=== PATIENT | male | born 1955 | race Caucasian/White ===

== ENCOUNTER 2022-02-19 09:48 | Outpatient (CLI) | payer MEDICARE, SELFPAY ==
--- NOTE | 2022-02-19 10:37 | PCM.PR.HP ---
History of Present Illness Arrival date:: 02/19/22 Arrival time:: 10:00 Date of Referral:: 02/02/22 Date of Evaluation: 02/19/22 Referring Physician: JAKE Primary Diagnosis: COPD mMRC Breathless Scale: When is the patient short of breath? Y/N Grade: Description of Breathlessness: 0 I only get breathless with strenuous exercise. 1 I get short of breath when hurrying on level ground or walking up a slight hill. 2 On level ground, I walk slower than people of the same age because of breathless, or have to stop for breath when walking at my own pace. 3 I stop for breath after walking 100 yards or after a few minutes on level ground. 4 I am too breathless to leave the house or I am breathless when dressing. Respiratory Problems: Yes: Limited Range of Motion, Fatigue, Able to Speak in Full Sentences, Ankle Swelling, Anxiety, Dyspnea with Activity No: Retain Secretions, Dyspnea at Rest, Dyspnea Lying Down Flat, Cough with Secretions - Secretions Thick:: No Thin:: No Hx of Sleep Apnea: Yes Do you snore loudly (louder than talking or can be heard through closed doors)?: Yes - CPAP @ [facility] History of Hypertension (for STOP score): Yes Home Medications: Home Medications albuterol mcg INHALATION 02/19/22 fluticasone propionate [Flonase] 1 spray INTRANASAL DAILY 02/19/22 guaifenesin [Mucinex] 600 mg PO BID 02/19/22 metformin 500 mg PO BID 02/19/22 montelukast 10 mg PO QHS 02/19/22 montelukast [Singulair] 10 mg PO DAILY 02/19/22 oxygen-air delivery systems [[employer] Nasal Cpap System] 02/19/22 Allergies/Adverse Reactions: Allergies No Known Allergies Allergy (Verified 02/19/22 10:44) Medical Utilization Do you use a peak flow meter at home?: No Do you use a spacer device with your inhalers?: No Number of hospital visits in the last year?: 0 Number of emergency room visits in the last year?: 0 Do you see your physician on a regular schedule?: Yes How often?: 6 MONTHS Comments:: [facility] - PCP. [facility] - PULMONARY Advanced Directives - Advanced Directives Power of Visualizer: No Living Will: No Advance Directives Information Provided: Yes Advance Directives on File: No DNR Order?:: No - MOLST See MOLST form: No Past Medical History - Covid-19 Screening Fever: No Unexplained muscle aches: No Current respiratory symptoms: No Upper respiratory infections symptoms: No Gastro-intestinal symptoms: No Cfh-Lzdw-Fljrdn symptoms: No Has tested positive for COVID-19 in last 30 days: No Had contact w/person w/symptoms or Covid-19 (+) last 14 days: No Has High Risk Exposures ID'd by Health dept/Inf Control team: No Lives in Assisted Living facility:: No Has a chronic lung disease or moderate to severe asthma:: Yes Has a serious heart condition:: No Immunocompromised:: No Severely obese (Body Mass Index of 40 or higher):: Yes Diabetic:: Yes Has chronic kidney disease undergoing dialysis:: No Has liver disease:: No Medical History: Past Medical History (Last Updated 02/19/22 @ 10:49 by Guanakito Walker, FACILITIES PROJECT MANAGER, CARDIAC NURSE PRACTITIONER, BS) Allergic rhinitis J30.9 Chronic acquired lymphedema I89.0 Chronic dyspnea R06.09 COPD (chronic obstructive pulmonary disease) J44.9 Diastolic heart failure I50.30 DM type 2 (diabetes mellitus, type 2) E11.9 Former cigarette smoker Z87.891 Hyperlipidemia E78.5 Lung nodule R91.1 Morbid obesity with BMI of 40.0-44.9, adult E66.01, Z68.41 MAREN on CPAP G47.33, Z99.89 Pleural thickening J92.9 - Current/ Previous Services Pulmonary Rehab:: No Social History - Smoking History Smoking Status: Former smoker Hx Tobacco Use: No Hx Smoking Exposure: No - Alcohol Use Alcohol Usage: Yes - BEER OCCASIONALLY - Substance Abuse Hx Substance Use: No - Occupation Occupation (List type of work in comments):: Retired - Hobbies, Recreation, Social Activities Hobbies: Other - OLD [employer]ARS Recreational Activities: I am able to engage in most, but not all activities Functioning ADL/IADL - Current Ability Current Ability: Independent Self-Care (e.g.,grooming, dressing, & bathing), Independent Ambulation, Independent Transfer, Independent Household tasks (e.g., light meal prep, laundry, shopping) - Pt Functioning Prior to Problem Prior Functioning: Self-Care (e.g.,grooming, dressing, & bathing): Independent, Ambulation: Independent, Transfer: Independent, Household tasks (e.g., light meal prep, laundry, shopping): Independent Social Environment - Status Marital Status: - Current Living Arrangements Living Environment:: Spouse - Children How many children do you have?: 3 Do any of your children live nearby?: Yes - Safety Do you feel safe in your surroundings?: Yes - Assistance Do you need any assistance at home?: NO Review of Systems Review of Systems: Right click = Denies ([place]). Left click = Reports ([place]) Respiratory: Reports: Pleuritic Pain, SOB upon Exertion, Wheezing, Appetite, Normal, Dizziness/Lightheadedness, Fatigue - ONLY OCCASIONALLY, Sleep, Normal. Denies: Sputum production, Sexual changes Is Patient Pain Free?: No Pain Location: none, other - FEET FROM NEUROPATHY Pain Level: 12/18 Risk Factor Assessment - Vital Signs Temperature: 97.5 F Pulse Rate: 87 Pulse Rhythm: Regular Respiratory Rate: 16 Pulse Ox: 98 Blood Pressure: 129/63 - Diabetes Diabetic History: Type II Nutrition Referral for Diabetes: Yes - Obesity Height: 5 ft 7 in Weight:: 247 lb Weight in Pounds: 247.0 lbs Weight Source: Estimated by Patient Body Mass Index (BMI): 38.7 Nutritional Referral for Obesity: Yes - Physical Activity Physical Inactivity: Recreational activity - WALKING Q/MORNING - Risk Stratification Risk Guidelines: Lowest Risk: Risk Factor for Smoking, Risk Factor for Dyslipidemia, Risk Factor for Diabetes, Risk Factor for Hypertension, Risk Factor for Sedentary Lifestyle, Risk Factor for Depression, Moderate Risk: Risk Factor for Diabetes, Highest Risk: Risk Factor for Obesity Motivation - Motivation to Participate On a scale of 1 to 10, how prepared are you to commit to attending program?: 9 What do you see as barriers to successfully being able to complete the program?: NONE What do you see as the benefits of succesfully completing the program? In other words, what do you hope to get out of participating in the program?: FEELING BETTER BREATHING BETTER Are there issues you are dealing with that will interfere with completing the program?: NONE Do you have a spouse or signficant other, family or friends who will help support you to complete the program?: YES
[2022-02-19 10:54] VITALS: BP 129/63; PULSE 87; RESP 16; TEMP 36.4; O2SAT 98; BMI 38.7
--- NOTE | 2022-02-19 11:31 | PCM.PR.TP ---
General Information2 - General Information Admitting Diagnosis: COPD Gold Classification:: GOLD 3: Severe - Personal Learning Style/Barriers Personal Learning Style:: Audio/Visual, Written Barriers to Learning: Vision impaired, Cognitive/learning impairment Educational Classes RI: Living with Chronic Lung Disease: Initial Assessment, Breathing Retraining: Initial Assessment, Exercise: Initial Assessment, Energy Conservation: Initial Assessment, Oxygen therapy: Initial Assessment - Education/Goals RI Patient Goals: Increase muscle strength: Initial Assessment, Improve energy level: Initial Assessment, Improve knowledge of lung disease: Initial Assessment, Improve diet and nutrition: Initial Assessment, Improve my quality of life: Initial Assessment Exercise - Initial Assessment - Visit Date of Eval: 02/19/22 Session Number:: 0 - PRE-CARDIAC REHAB EVAL - Problem/Goals Problems: Deconditioning, No regular exercise Goals:: RI: 2-3/wk for 18 weeks [36 sessions] - Physician Prescribed Exercise Modalities: Treadmill, NuStep, SciFit Frequency (days/week): 3 Duration (Minutes):: 30-45 Intensity: 60-80% of age predicted maximum heart rate reserve Current METSs:: 3.0 Target HR:: 123 - 94-123 Resting Blood Pressure: 134/75 EKG Type: SINUS RHYTHM WITH PREMATURE VENTRICULAR CONTRACTIONS - Plan Plan and Plan to Review:: Benefits of exercise, Core components of exercise, How to measure dyspnea level, How to monitor dyspnea level, Exercise intensity, Exercise safety guideline, Home exercise guidelines, Julio: 3-4/11-13 Home Exercise Mode: Walking Nutrition/Wt Mgmt - Initial - Visit Date of Eval: 02/19/22 Session Number:: 0 - PRE-CARDIAC REHAB EVALUATION - Problems/Goals Problems: Overweight Goals: Wt Loss 1-2 lbs per week - Weight Management Knowledge Deficit Management of:: Overweight Admit Height:: 5 ft 7 in Admit Weight:: 249 lb Admit BMI:: 38.9 - Intervention Referral to dietitian:: Yes Will attend diet classes:: Yes Intervention/Plan: Instruct on ideal BMI & set weight loss goal w/patient, Assist pt to ID & incorporate diet changes for weight loss by S9, Refer to Structured Weight Loss program as appropriate, Encourage goal of using 250-300dcal per session for weight loss - Plan Nutrition Plan: Yes Review BMI or WC & identify target wt & strategies for wt control, Yes Nutrition education class:, Yes Weight control education class:, Yes Education re: Need for ongoing weight monitoring Psychosocial - Initial Assess - Visit Date of Eval: 02/19/22 Session Number:: 0 - PRE-PULM REHAB EVAL - Problems/Goals History of Emotional Disorders: Anxious Psychosocial Goals: 1. Patient is free from overwhelming symtoms of depression (or anxiety, 2. Identifies personal stressors & states the strategies for managing, 3. Identifies activities to decrease isolation and/or symptoms of, 4. Improved psychosocial coping skills., 5. Verbalizes coping strategies., 6. Adequate treatment of depression., 7. Improved Q.O.L. - Psychosocial Test Tool Used:: Pulmonary QOL, PHQ-9 Questionnaire Referred to MD for counseling:: No - Referral to Behavioral Health PS - Interventions: Yes Attend Stress Management Classes, No Referral to Behavioral Health if PHQ-9 score >9:, No Referral to [facility], No Referral to Physician if PHQ-9 if score is 5-9: - Intervention/Plan: See List Interventions/Plan:: Assess stressors,coping strategies & signs of derpression on admission, Instruct/assist pt to develop coping & personal stress Mgt strategies, Instruct patient to recognize signs & symptoms of depression, Instruct patient to recog Oxygen & Oxygen Titration Init - Visit Date of Eval: 02/19/22 Session Number:: 0 - PRE-PULM REHAB EVALUATION - Initial Assessment Oxygen on Admission: None Patient Reports:: Prod cough daily <1 Tbsp - Goal Oxygen & Oxygen Tritration Goals: Effective hypoxemia control - Plans Plan: Train appropriate O2 use with exercise, Train O2 safety & systems Reviewed prescribed medications:: Purpose, Schedule, Side effects, Importance of compliance Instruct correct technique/timing & care:: MDI, DPI, Nebulizer, Return demo use of inhaler Bronchial Hygiene Plan: Controlled cough, Vibratory PEP device, Hydration, Evaluate sputum, When to call MD Core Components - Initial - Visit Date of Eval: 02/19/22 Session Number:: 0 - PRE-PULM REHAB EVAL - Hypertension Hypertension Diagnosis:: Hypertension ICD-10 I10 BP: 129/63 [place] [employer] Hypertension Guidelines: [place] [employer] Hypertension Guidelines. Normal BP Less than 120/80. Elevated BP 120/80. Hypertension Stage 1: BP 130-139/80-89. Hypertesnion Stage 2: BP 140 or higher/90 or higher. Hypertension Crisis: BP higher than 180/120 Low Sodium diet: Yes Outcomes/Goals: Able to verbalize/achieve optimal blood pressure <130/80, Incorporates diet changes & exercise for blood pressure control by DC - Tobacco - Initial Assessment Tobacco Program Goals: Complete smoking cessation. Attend education classes. Improve Knowledge Test score Stages of Change:: Pre-contemplation Learning Barriers: Vision, Cognitive Do you have family support?: Yes Tobacco Use: Non-smoker - Exacerbation Mgmt & Airway Clearance Problems:: Hypoxemia Hypoxemia Goals:: Using O2 as Rx's safely Bronchial Hygiene Problems:: Respiratory infection Prevention/Management Goals: Pt demonstrates effective cough, effective secretion clearance., Pt describes signs and symptoms of infection. Patient Reports:: Prod cough daily <1 Tbsp, 0-1/yr respiratory infection Plan: Monitor SpO2 rest & with exercise, Train appropriate O2 use with exercise, Train O2 safety & systems Instruct correct technique/timing & care:: MDI Bronchial Hygiene Plan: Controlled cough, Vibratory PEP device, Hydration, Evaluate sputum, When to call MD, Signs/symptoms to report: - Medication Interventions/plans: Instruct on medication effects & side effects, Instruct importance of taking meds as ordered & assist problem solving Medication Goals: Adherence to prescribed medications Does pt report taking home meds as prescribed?: Yes Medications: Yes MDI - Diabetes Diabetes:: Yes Insulin: Yes Referral to dietitian:: Yes Referral to Diabetic Clinic:: Yes Will attend diet classes:: Yes Core Components - 30 DAYS Core Components - 60 DAYS Core Components - 90 DAYS Core Components - Final Patient Health Questionnaire Initial Assessment 1. Little interest or pleasure in doing things: More than half the days 2. Feeling down, depressed, or hopeless: Several days 3. Trouble falling or staying asleep, or sleeping too much: Not at all 4. Feeling tired or having little energy: More than half the days 5. Poor appetite or overeating: Nearly every day 6. Feeling bad about yourself -- or that you are a failure or have let yourself or your family down: More than half the days 7. Trouble concentrating on things, such as reading the newspaper or watching television: Not at all 8. Moving or speaking so slowly that other people could have noticed. Or the opposite - being so fidgety or restless that you have been moving around a lot more than usual: Not at all 9. Thoughts that you would be better off , or of hurting yourself in some way: Not at all How difficult have these problems made it for you to do your work, take care of things at home, or get along with other people?: Somewhat difficult Total Score: 10 Knowledge Questionaire (BCKQ) - Information Information: [facility] COPD Knowledge Questionnaire (BCKQ) This questionnaire is designed to find out what you know about your lung problem. It should be completed without help form anyone else. This usually takes between 10 and 20 minutes. Your answers will help us to find out what information you need to help you to understand and manage your lung condition. Tucker the pauma which you think is the correct answer. - Questions a. In COPD the word chronic means it is severe: True b. COPD can only be confirmed by breathing tests: True c. In COPD ther is usually gradual worsening over time: True d. In COPD oxygen levels in the blood are always low: Don't know e. COPD is usually in people less than 40 years old: Don't know Terry than 80% of COPD cases are caused by cigarette smoking: Don't know b. COPD can be caused by occupational dust exposure: Don't know c. Longstanding asthma can develop into COPD: True d. COPD is commonly an inherited disease: False e. Women are less vunerable to the effects of cigarette than men: False a. Swelling of the ankles is common in COPD:: Don't know b. Fatigue [tiredness] is common in COPD: True c. Wheezing is common in COPD: True d. Crushing chest pain is common in COPD: Don't know e. Rapid weight loss is common in COPD: False a. Severe breathlessness prevents travel by air: Don't know b. Breathlessness can be worsened by eating large meals: True c. Breathlessness means that your oxygen levels are low: Don't know d. Breathlessness is a normal response to exercise: Don't know e. Breathlessness is primarily caused by a narrowing of the bronchial tubes: True a. Coughing phlegm is a common symptom in COPD: Don't know b. Clearing phlegm is more difficult if you get dehydrated: Don't know c. Bronchodilator inhalers can help clear phlegm: Don't know d. Phlegm causes harm if swallowed: Don't know e. Clearing phlegm can be assisted by breathing exercises: Don't know a. Chest infections often cause coughing of blood: Don't know b. Chest infection phlegm usually becomes coloured (ylw/grn): Don't know cExerbations (episodes of worsening) can occur in the absence of chest infection: Don't know d. Chest infections are always accompanied by a high temperature: Don't know e. Steroid tablets should be taken whenever there is an exacerbation: Don't know aWalking excercises better than breathing to improve fitness: Don't know b. Exercise should be avoided as it strains the lungs: Don't know c. Exercise can help maintain your bone density: Don't know d. Exercise helps relieve depression: Don't know e. Exercise should be stopped if it makes you breathless: Don't know a. Stopping smoking will reduce the risk of heart disease: Don't know b. Stopping smoking will slow down further lung damage: Don't know c. Stopping smoking is pointless as the damage is done: Don't know d.Stopping smoking usually results in improved lung function: Don't know eNicotine replacement therapy only available on prescription: Don't know a. A flu jab is recommended every year: Don't know b. You can get flu from having a flu jab: Don't know c. You can only have a flu jab if you are 65 or over: Don't know d. A pneumonia jab protects against all forms of pneumonia: Don't know e.You can have a pneumonia jab and a flu job on the same day: Don't know a. Bronchodilators act quickly (within 10 minutes): Don't know b. Both short & long acting bronchodilators can be taken on the same day: True c. Spacers (volumatic,nebuhaler,serochamber)should be dried w/atowel after washing: Don't know d. A spacer device increases the medication to the lungs: Don't know e. Tremor may be a side effect of bronchodilators: Don't know a. To be effective, the course should last at least 10 days: Don't know b. Excessive use of antibiotics can cause resistant bacteria (germs): Don't know c. Antibiotics will clear all chest infections: Don't know d. Antibiotic treatment is necessary for an exacerbation (worsening) however mild: Don't know e. Seek advice if antibiotics cause severe diarrhoea: True a. Steroid tablets help strengthen muscles: Don't know b. Steroid tablets should be avoided if there is a chest infection: Don't know c. The risk of long-term side effects due to steroids is less w/short courses then w/continous treatment: Don't know dIndigestion is common side effect from using steroid tablet: Don't know e. Steroid tablets can increase your appetite: Don't know a. Inhaled steroids should be stopped if you are given steroid tablets: Don't know bSteroid inhalers can be used for rapid relief breathlessnes: True c. Spacer devices reduce the risk of getting thrush in the mouth: Don't know d.Steroid inhaler should be taken before your bronchodilator: Don't know e. Inhaled steroids improve lung function in COPD: Don't know COPD Knowledge Test Total Score:: 12 COPD Assessment Test [CAT] - Questions Never cough = 0, Cough all the time = 5: 3 No phlegm = 0, Chest full of phlegm = 5: 2 No chest tightness = 0, Chest very tight = 5: 1 No breathless w/exertion = 0, Very breathless w/exertion = 5: 2 No limitations w/activity = 0, Very limited w/activity = 5: 3 Confident leaving home = 0, Not at all confident = 5: 1 Sleep soundly = 0, Don't sleep soundly = 5: 1 Lots of energy = 0, No energy at all = 5: 3 Total CAT score:: 16 Self-Efficacy Initial Assessment We would like to know how confident you are in doing certain activities. Please select your confidence level for:: Select your confidence level for the following using the scale 1-10 where 1 is not at all confident and 10 is totally confident. Your score is the average of all 6 responses. Fatigue: How confident are you that you can keep the fatigue caused by your disease from interfering with the things you want to do? Select Number: 4 Physical Discomfort or Pain: How confident are you that you can keep the physical discomfort or pain of your disease from interfering with the things you want to do? Select Number: 9 Emotional Distress: How confident are you that you can keep the emotional distress caused by your disease from interfering with the things you want to do? Select Number: 4 Other Symptoms or Health Problems: How confident are you that you can keep other symptoms or health problems from interfering with the things you want to do? Select Number: 6 Different Tasks and Activities: How confident are you that you can do the different tasks and activities needed to manage your health condition so as to reduce your need to see a doctor? Select Number: 5 Medication: How confident are you that you can do things other than just taking medication to reduce how much your illness affects your everyday life? Select Number: 4 Total Score:: 5 Nutrition Survey - Nutrition Survey Initial Have you lost >10 lbs over the past 2 months without trying?: No Are you following a special diet at home for diabetes, low fat, or low salt?: No Are you interested in meeting with a dietitian for help understanding your diet?: Yes Do you eat less than 3 meals a day?: No Do you eat fatty meats (gregorio, sausage, ribs, etc), fried foods, desserts, large amounts of salad dressings, margarine, butter, or cheese most days?: Yes Do you have food allergies? [Enter types in comment field]: No Do you eat in restaurants more than 3 times a week?: No Do you used canned, boxed, frozen meals, or soups, seasoning packets?: Yes
[2022-02-19 12:24] VITALS: BP 129/63; BP 134/75; BMI 38.9
== END 2022-02-19 23:59 | disposition home or self-care (01) ==
DX: J44.9 Chronic obstructive pulmonary disease, unspecified (principal)

== ENCOUNTER 2022-03-06 10:30 | Outpatient (RCR) | payer OTHER, SELFPAY | END 2022-03-07 23:59 | LOC: PR 10:30 | DX: R06.00 Dyspnea, unspecified (principal) | CPT/HCPCS: 97150; 94626 ==

== ENCOUNTER 2022-04-03 10:30 | Outpatient (RCR) | payer OTHER, SELFPAY ==
--- NOTE | 2022-03-20 08:01 | PCM.PR.TP ---
Exercise - 30-Day Assessment - Visit Date of Eval: 03/20/22 Session Number:: 11 - Physician Prescribed Exercise Modalities: Treadmill, Biodyne - Schwinn Airdyne Cycle, NuStep Intensity: 60-80% of age predicted maximum heart rate reserve Aerobic Exercise [30-60 min 3-7x/week]:: Progressing Julio-13 Current METSs:: 3.5 Target HR:: 130 - 100-130 THRR Current RPD:: 3 Maximum Exercise HR:: 111 Resting Blood Pressure: 120/65 Maximum Exercise Blood Pressure: 142/66 Minimum SpO2 with exercise: 93 - room air EKG Type: NST to sinus tach w/rare PVC/PAC Current Minutes of Exercise: 53 - Home Exercise Home Exercise:: Yes Mode: Walking Frequency:: daily Nutrition/Wt Mgmt - 30-Day - Visit Date of Eval: 03/20/22 Session Number:: 11 - Weight Management Weight Assessment:: BMI 21 to 25, Wt loss 1-2 lbs per week Height: 5 ft 7 in Weight:: 239 lb - Down from 242.5! BMI: 37.4 Weight Goals Progress:: Progressing Psychosocial - 30-Day - Visit Date of Eval: 03/20/22 Session Number:: 11 - Problems/Goals History of Emotional Disorders: None Psychosocial Goals: 7. Improved Q.O.L. - Psychosocial Test Tool Used:: PHQ-9 Questionnaire - Referral to Behavioral Health PS - Interventions: Yes Attend Stress Management Classes, No Referral to Behavioral Health if PHQ-9 score >9:, No Referral to [facility], No Referral to Physician if PHQ-9 if score is 5-9: - Plan Interventions/Plan:: Assess stressors,coping strategies & signs of derpression on admission, Instruct/assist pt to develop coping & personal stress Mgt strategies, Instruct patient to recognize signs & symptoms of depression Oxygen & Oxygen Titration 30D - Visit Date of Eval: 03/20/22 Session Number:: 11 - Reassessment Reassessment- 30 Days: Demonstrate knowledge of O2 Rx at rest & w/exercise Breath Sounds:: Inspiratory Wheezes - very mild SpO2:: 94 - room air arrival to IN Core Components - Initial Core Components - 30 DAYS - Visit Date of Eval: 03/20/22 Session Number:: 11 - Hypertension Hypertension Diagnosis:: Hypertension ICD-10 I10 Resting Blood Pressure:: 120/65 - Resting BPs have improved with exercise! [employer] Hypertension Guidelines: [place] [employer] Hypertension Guidelines. Normal BP Less than 120/80. Elevated BP 120/80. Hypertension Stage 1: BP 130-139/80-89. Hypertesnion Stage 2: BP 140 or higher/90 or higher. Hypertension Crisis: BP higher than 180/120 Peak Exercise Blood Pressure:: 142/66 Change in medication: No Outcomes/Goals: Able to verbalize/achieve optimal blood pressure <130/80, Incorporates diet changes & exercise for blood pressure control by DC Interventions/plan: Instruct on optimal blood pressure, hypertension & medications, Instruct on effects of sodium, alcohol, stress, exercise &hypertension 30 day Reassessments:: Progressing - Exacerbation Mgmt & Airway Clearance Reassessment: Demonstrates knowledge of O2 Rx at rest, Demonstrates knowledge of O2 Rx with exercise Bronchial Hygiene Plan: Yes Pt demo correct for improved hydration, Yes Pt demo correct for hand hygiene, Yes Pt demo correct for verbalize when to call MD - Medication Medication list reviewed:: Yes Taking medications 100% of the time:: Met - Diabetes Diabetes:: Yes Insulin dependent injection/pump?: Yes Non-Insulin Dependent?: Yes Do you monitor your blood sugar at home?: Yes Referral to Diabetic Clinic:: Yes Refer to Nutritional Services: DSMNT & MNT 30-day Reassessments:: Progressing - Heart Failure Documenting weight lula: No Core Components - 60 DAYS Core Components - 90 DAYS Core Components - Final Patient Health Questionnaire 30-Day Re-eval Assessment 1. Little interest or pleasure in doing things: More than half the days 2. Feeling down, depressed, or hopeless: Several days 3. Trouble falling or staying asleep, or sleeping too much: Not at all 4. Feeling tired or having little energy: Several days 5. Poor appetite or overeating: More than half the days 6. Feeling bad about yourself -- or that you are a failure or have let yourself or your family down: More than half the days 7. Trouble concentrating on things, such as reading the newspaper or watching television: Not at all 8. Moving or speaking so slowly that other people could have noticed. Or the opposite - being so fidgety or restless that you have been moving around a lot more than usual: Not at all 9. Thoughts that you would be better off , or of hurting yourself in some way: Not at all How difficult have these problems made it for you to do your work, take care of things at home, or get along with other people?: Somewhat difficult Total Score: 8 Knowledge Questionaire (BCKQ) - Information Information: [place] COPD Knowledge Questionnaire (BCKQ) This questionnaire is designed to find out what you know about your lung problem. It should be completed without help form anyone else. This usually takes between 10 and 20 minutes. Your answers will help us to find out what information you need to help you to understand and manage your lung condition. [place] the [place] which you think is the correct answer. Self-Efficacy 30-Day Re-eval Assessment We would like to know how confident you are in doing certain activities. Please select your confidence level for:: Select your confidence level for the following using the scale 1-10 where 1 is not at all confident and 10 is totally confident. Your score is the average of all 6 responses. Fatigue: How confident are you that you can keep the fatigue caused by your disease from interfering with the things you want to do? Select Number: 5 Physical Discomfort or Pain: How confident are you that you can keep the physical discomfort or pain of your disease from interfering with the things you want to do? Select Number: 9 Emotional Distress: How confident are you that you can keep the emotional distress caused by your disease from interfering with the things you want to do? Select Number: 6 Other Symptoms or Health Problems: How confident are you that you can keep other symptoms or health problems from interfering with the things you want to do? Select Number: 7 Different Tasks and Activities: How confident are you that you can do the different tasks and activities needed to manage your health condition so as to reduce your need to see a doctor? Select Number: 7 Medication: How confident are you that you can do things other than just taking medication to reduce how much your illness affects your everyday life? Select Number: 6 Total Score:: 6 Nutrition Survey
[2022-03-20 08:08] VITALS: BP 120/65; BP 142/66; O2SAT 94; BMI 37.4
== END 2022-04-07 23:59 ==
LOC: PR 10:30
DX: R06.00 Dyspnea, unspecified (principal)
CPT/HCPCS: 97150; 94626

== ENCOUNTER 2022-05-04 10:30 | Outpatient (RCR) | payer OTHER, SELFPAY ==
[2022-03-20 08:08] VITALS: BMI 37.4
[2022-04-08 01:06] VITALS: BP 120/65; BP 142/66
--- NOTE | 2022-04-20 07:31 | PCM.PR.TP ---
Exercise - 60-Day Assessment - Visit Date of Eval: 04/20/22 Session Number:: 23 - Physician Prescribed Exercise Modalities: Treadmill, Biodyne - Schwinn Airdyne Bike replace the Biodyne, NuStep Intensity: 60-80% of age predicted maximum heart rate reserve Aerobic Exercise [30-60 min 3-7x/week]:: Progressing Current METSs: 5.0 Target HR:: 130 - THRR 100-130 Current RPD:: 12-13 Maximum Exercise HR:: 122 Resting Blood Pressure: 106/70 Maximum Exercise Blood Pressure: 158/70 Minimum SpO2 with exercise: 93 EKG Type: NSR to sinus tach with rare PAC/PVC. Current Minutes of Exercise: 48:00 - Home Exercise Home Exercise:: Yes Mode: Walking Frequency:: Daily Time (minutes):: 60 - Plus more physically active! Nutrition/Wt Mgmt - 60-Day - Visit Date of Eval: 04/20/22 Session Number:: 23 - Weight Management Height: 5 ft 7 in Weight:: 236 lb 8 oz - Down from 239! BMI: 37.0 Weight Goals Progress:: Progressing Psychosocial - 60-Day - Visit Date of Eval: 04/20/22 Session Number:: 23 - Problems/Goals History of Emotional Disorders: None - Psychosocial Test Tool Used:: PHQ-9 Questionnaire Referred to MD for counseling:: No - Referral to Behavioral Health PS - Interventions: Yes Attend Stress Management Classes, No Referral to Behavioral Health if PHQ-9 score >9:, No Referral to [facility], No Referral to Physician if PHQ-9 if score is 5-9: - Plan Interventions/Plan:: Assess stressors,coping strategies & signs of derpression on admission, Instruct/assist pt to develop coping & personal stress Mgt strategies, Instruct patient to recognize signs & symptoms of depression, Instruct patient to recog Oxygen & Oxygen Titration 60D - Visit Date of Eval: 04/20/22 Session Number:: 23 - Reassessment Reassessment- 60 Days: Demonstrate knowledge of O2 Rx at rest & w/exercise Breath Sounds:: Clear SpO2:: 98 - room air at rest Core Components - Initial Core Components - 30 DAYS Core Components - 60 DAYS - Visit Date of Eval: 04/20/22 Session Number:: 23 - Hypertension Resting Blood Pressure:: 106/70 [place] [employer] Hypertension Guidelines: [place] [employer] Hypertension Guidelines. Normal BP Less than 120/80. Elevated BP 120/80. Hypertension Stage 1: BP 130-139/80-89. Hypertesnion Stage 2: BP 140 or higher/90 or higher. Hypertension Crisis: BP higher than 180/120 Peak Exercise Blood Pressure:: 158/70 Change in medication: No Outcomes/Goals: Able to verbalize/achieve optimal blood pressure <130/80, Incorporates diet changes & exercise for blood pressure control by DC Interventions/plan: Instruct on optimal blood pressure, hypertension & medications, Instruct on effects of sodium, alcohol, stress, exercise &hypertension 60 day Reassessments:: Met - Exacerbation Mgmt & Airway Clearance Reassessment: Demonstrates knowledge of O2 Rx with exercise Bronchial Hygiene Plan: Yes Pt demonstrates correctly for effective cough, Yes Pt demo correct for improved hydration, Yes Pt demo correct for hand hygiene, Yes Pt demo correct for verbalize when to call MD - Medication Medication list reviewed:: Yes Taking medications 100% of the time:: Met - Diabetes Diabetes:: Yes Fasting blood glucose:: 154 - Post exercise 117 Insulin dependent injection/pump?: Yes Non-Insulin Dependent?: Yes Do you monitor your blood sugar at home?: Yes 60-day Reassessments:: Met - Heart Failure Documenting weight lula: Yes Core Components - 90 DAYS Core Components - Final Patient Health Questionnaire 60-Day Re-eval Assessment 1. Little interest or pleasure in doing things: Not at all 2. Feeling down, depressed, or hopeless: Not at all 3. Trouble falling or staying asleep, or sleeping too much: Not at all 4. Feeling tired or having little energy: Several days 5. Poor appetite or overeating: Several days 6. Feeling bad about yourself -- or that you are a failure or have let yourself or your family down: Not at all 7. Trouble concentrating on things, such as reading the newspaper or watching television: Not at all 8. Moving or speaking so slowly that other people could have noticed. Or the opposite - being so fidgety or restless that you have been moving around a lot more than usual: Not at all 9. Thoughts that you would be better off , or of hurting yourself in some way: Not at all How difficult have these problems made it for you to do your work, take care of things at home, or get along with other people?: Not difficult at all Total Score: 2 Knowledge Questionaire (BCKQ) - Information Information: [place] COPD Knowledge Questionnaire (BCKQ) This questionnaire is designed to find out what you know about your lung problem. It should be completed without help form anyone else. This usually takes between 10 and 20 minutes. Your answers will help us to find out what information you need to help you to understand and manage your lung condition. [place] the [place] which you think is the correct answer. Self-Efficacy 60-Day Re-eval Assessment We would like to know how confident you are in doing certain activities. Please select your confidence level for:: Select your confidence level for the following using the scale 1-10 where 1 is not at all confident and 10 is totally confident. Your score is the average of all 6 responses. Fatigue: How confident are you that you can keep the fatigue caused by your disease from interfering with the things you want to do? Select Number: 8 Physical Discomfort or Pain: How confident are you that you can keep the physical discomfort or pain of your disease from interfering with the things you want to do? Select Number: 9 Emotional Distress: How confident are you that you can keep the emotional distress caused by your disease from interfering with the things you want to do? Select Number: 8 Other Symptoms or Health Problems: How confident are you that you can keep other symptoms or health problems from interfering with the things you want to do? Select Number: 9 Different Tasks and Activities: How confident are you that you can do the different tasks and activities needed to manage your health condition so as to reduce your need to see a doctor? Select Number: 10 Medication: How confident are you that you can do things other than just taking medication to reduce how much your illness affects your everyday life? Select Number: 10 Total Score:: 9 Nutrition Survey
[2022-04-20 07:40] VITALS: BP 106/70; BP 158/70; O2SAT 98; BMI 37.0
== END 2022-05-07 23:59 ==
LOC: PR 10:30
DX: R06.00 Dyspnea, unspecified (principal)
CPT/HCPCS: 97150; 94626

== ENCOUNTER 2022-05-25 10:30 | Outpatient (RCR) | payer OTHER, SELFPAY ==
[2022-04-20 07:40] VITALS: BMI 37.0
[2022-05-08 00:38] VITALS: BP 106/70; BP 158/70
--- NOTE | 2022-05-18 09:15 | PR.ITP_ITS ---
Exercise - 90-Day Assessment - Visit Date of Eval: 05/18/22 Session Number:: 32 - Physician Prescribed Exercise Modalities: Treadmill, Airdyne, NuStep Intensity: 60-80% of age predicted maximum heart rate reserve Aerobic Exercise [30-60 min 3-7x/week]:: Met Julio Current METSs:: 5.0 Target HR:: 130 - THRR 100-130 Maximum Exercise HR:: 120 Resting Blood Pressure: 104/60 Maximum Exercise Blood Pressure: 158/74 Minimum SpO2 with exercise: 91 EKG Type: NSR to sinus tach w/occasional PVCs rare PAC Current Minutes of Exercise: 1:05:48 - Home Exercise Home Exercise?: Yes Mode: Walking Frequency:: daily Time (minutes):: 60 Nutrition/Wt Mgmt - 90-Day - Visit Date of Eval: 05/18/22 Session Number:: 32 - Weight Management Height: 5 ft 7 in Weight:: 233 lb - down from 247! BMI: 36.5 Weight Goals Progress:: Progressing Psychosocial - 90-Day - Visit Date of Eval: 05/18/22 Session Number:: 32 - Problems/Goals History of Emotional Disorders: None - Psychosocial Test Tool Used:: PHQ-9 Questionnaire Referred to MD for counseling:: No - Referral to Behavioral Health PS - Interventions: Yes Attend Stress Management Classes, No Referral to Behavioral Health if PHQ-9 score >9:, No Referral to [facility], No Referral to Physician if PHQ-9 if score is 5-9: - Plan Interventions/Plan:: Assess stressors,coping strategies & signs of derpression on admission, Instruct/assist pt to develop coping & personal stress Mgt strategies, Instruct patient to recognize signs & symptoms of depression, Instruct patient to recog Oxygen & Oxygen Titration 90D - Visit Date of Eval: 05/18/22 Session Number:: 32 - Reassessment Oxygen & Oxygen Titration 90 days: None Breath Sounds:: Clear, Diminished SpO2:: 95 - room air @ rest Core Components - Initial Core Components - 30 DAYS Core Components - 60 DAYS Core Components - 90 DAYS - Visit Date of Eval: 05/18/22 Session Number:: 32 - Hypertension Hypertension Diagnosis:: Hypertension ICD-10 I10 Resting Blood Pressure:: 104/60 [place] [employer] Hypertension Guidelines: [place] [employer] Hypertension Guidelines. Normal BP Less than 120/80. Elevated BP 120/80. Hypertension Stage 1: BP 130-139/80-89. Hypertesnion Stage 2: BP 140 or higher/90 or higher. Hypertension Crisis: BP higher than 180/120 Peak Exercise Blood Pressure:: 158/74 Outcomes/Goals: Able to verbalize/achieve optimal blood pressure <130/80, Incorporates diet changes & exercise for blood pressure control by DC Interventions/plan: Instruct on optimal blood pressure, hypertension & medications, Instruct on effects of sodium, alcohol, stress, exercise &hypertension 90 day Reassessments:: Met - Tobacco - 90-Day Tobacco Program Goals: Complete smoking cessation. Attend education classes. Improve Knowledge Test score Tobacco Use: Non-smoker Education Schedule Given:: Yes Gave Education Materials For:: Tobacco Triggers, Pulmonary Disease, Risk Factors, Breathing Techniques, Medical Compliance, Pulmonary A&P, Exacerbation Signs & Symptoms, Stress & Relaxation 90-day Reassessments:: Met - Exacerbation Mgmt & Airway Clearance Bronchial Hygiene Plan: Yes Pt demonstrates correctly for effective cough, Yes Pt demo correct for device, Yes Pt demo correct for improved hydration, Yes Pt demo correct for hand hygiene, Yes Pt demo correct for verbalize when to call MD - Medication Medication list reviewed:: Yes Taking medications 100% of the time:: Met - Diabetes Diabetes:: Yes Insulin dependent injection/pump?: Yes Non-Insulin Dependent?: Yes Do you monitor your blood sugar at home?: Yes 90-day Reassessments:: Met - Heart Failure Documenting weight daily: Yes Core Components - Final Patient Health Questionnaire 90-Day Re-eval Assessment 1. Little interest or pleasure in doing things: Not at all 2. Feeling down, depressed, or hopeless: Not at all 3. Trouble falling or staying asleep, or sleeping too much: Not at all 4. Feeling tired or having little energy: Not at all 5. Poor appetite or overeating: Not at all 6. Feeling bad about yourself -- or that you are a failure or have let yourself or your family down: Not at all 7. Trouble concentrating on things, such as reading the newspaper or watching television: Not at all 8. Moving or speaking so slowly that other people could have noticed. Or the opposite - being so fidgety or restless that you have been moving around a lot more than usual: Not at all 9. Thoughts that you would be better off , or of hurting yourself in some way: Not at all How difficult have these problems made it for you to do your work, take care of things at home, or get along with other people?: Not difficult at all Total Score: 0 Knowledge Questionaire (BCKQ) - Information Information: [place] COPD Knowledge Questionnaire (BCKQ) This questionnaire is designed to find out what you know about your lung problem. It should be completed without help form anyone else. This usually takes between 10 and 20 minutes. Your answers will help us to find out what information you need to help you to understand and manage your lung condition. [place] the [place] which you think is the correct answer. Self-Efficacy 90-Day Re-eval Assessment We would like to know how confident you are in doing certain activities. Please select your confidence level for:: Select your confidence level for the following using the scale 1-10 where 1 is not at all confident and 10 is totally confident. Your score is the average of all 6 responses. Fatigue: How confident are you that you can keep the fatigue caused by your disease from interfering with the things you want to do? Select Number: 10 Physical Discomfort or Pain: How confident are you that you can keep the physical discomfort or pain of your disease from interfering with the things you want to do? Select Number: 10 Emotional Distress: How confident are you that you can keep the emotional distress caused by your disease from interfering with the things you want to do? Select Number: 10 Other Symptoms or Health Problems: How confident are you that you can keep other symptoms or health problems from interfering with the things you want to do? Select Number: 10 Different Tasks and Activities: How confident are you that you can do the different tasks and activities needed to manage your health condition so as to reduce your need to see a doctor? Select Number: 10 Medication: How confident are you that you can do things other than just taking medication to reduce how much your illness affects your everyday life? Select Number: 10 Total Score:: 10 Nutrition Survey
[2022-05-18 09:21] VITALS: BP 104/60; BP 158/74; O2SAT 95; BMI 36.5
== END 2022-06-07 23:59 ==
LOC: PR 10:30
DX: R06.00 Dyspnea, unspecified (principal)
CPT/HCPCS: 97150; 94626